=== PATIENT | male | born 1960 | race Caucasian/White ===

== ENCOUNTER 2017-06-07 15:18 | Observation (INO) ==
[2017-06-07] MEDS ORDERED: Nitroglycerin 0.4 MG TAB.SUBL SL ONE (15:32)
[2017-06-07] MEDS ORDERED: 0.9 % Sodium Chloride 500 ML IVC ONE (15:32)
--- NOTE | 2017-06-07 15:38 | Emergency Department Note ---
Disposition Clinical Impression: Chest tightness or pressure, Unstable angina Disposition: Admitted As Inpatient Condition: Fair Forms: ED Satisfaction Letter Time of Disposition: 16:57 Chest Pain HPI - General Chief Complaint: ED Chest Pain Stated Complaint: chest pain Time Seen by Provider: 06/07/17 15:20 Source: patient Limitations: no limitations Vital Signs Reviewed: Yes Nursing Notes Reviewed: Yes - History of Present Illness HPI Narrative: Patient is a 57-year-old male brought in by EMS secondary to chest pain that started early 45 minutes ago. Patient states she was sitting down while playing bingo when he had sudden onset of heavy chest pressure feeling midst of substernal 8 out 10 in severity. No radiation inconstant. 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 Patient's poor historian and does not know what medications he is on. Awaiting his mother for more information. Severity scale (1-10): 5 - Related Data Home Medications Medication Instructions Recorded Confirmed Albuterol Sulfate [Proair Hfa] 2 puff IH Q4H PRN 06/07/17 06/07/17 Amitriptyline [Elavil] 50 mg PO HS 06/07/17 06/07/17 Aspirin Enteric Coated [Aspirin EC] 81 mg PO DAILY 06/07/17 06/07/17 Lacosamide [Vimpat] 100 mg PO BID 06/07/17 06/07/17 Lisinopril/Hydrochlorothiazide 1 each PO DAILY 06/07/17 06/07/17 [Zestoretic 20-25 mg Tablet] carBAMazepine [CarBAMazepine] 100 mg PO BID 06/07/17 06/07/17 carBAMazepine [Tegretol] 200 mg PO TID 06/07/17 06/07/17 Allergies Allergy/AdvReac Type Severity Reaction Status Date / Time No Known Allergies Allergy Verified 10/08/15 08:43 Review of Systems: Patient admits to chest pain, denies nausea, vomiting, diarrhea, diaphoresis, cough, numbness tingling, paresthesia, dysuria, incontinence of urine or stool. All systems ED: reviewed and negative except as stated. Review of Systems: As Per HPI Chest Pain PMH - Past Medical History Medical history: Reports: hypertension, seizures Psychiatric history: Reports: no psych history - Social History Smoking Status: Never smoker Alcohol use: Reports: none Drug use: Reports: none Physical Exam Vital Signs Temperature 98.4 F 06/07/17 15:19 Pulse Rate 66 06/07/17 15:19 Respiratory Rate 18 06/07/17 15:19 Blood Pressure 119/94 06/07/17 15:19 O2 Sat by Pulse Oximetry 97 06/07/17 15:19 Temperature 98.1 F 06/07/17 22:24 Pulse Rate 66 06/07/17 22:24 Respiratory Rate 16 06/07/17 22:24 Blood Pressure 143/84 06/07/17 22:24 O2 Sat by Pulse Oximetry 96 06/07/17 22:24 Oxygen Delivery Oxygen Delivery Nasal Cannula -General Appearance: Patient is a 57-year-old male who is alert and oriented 3 in no acute distress. Patient seems uncomfortable secondary to chest pain. Patient follows direction well throughout exam -Neurological exam: Cranial nerves II-12 intact, no focal deficits observed, strength equal 5/5 bilaterally in upper and lower extremities, cerebellar motion test negative. Negative loss of sensation - Head Head exam: atraumatic, normocephalic, normal inspection - Eye Eye exam: Present: normal appearance, PERRL, EOMI, negative for scleral icterus negative for conjunctival pallor - ENT ENT exam: normal exam, normal oropharynx, mucous membranes moist - Neck Neck exam: Present: normal inspection, full ROM, trachea midline, negative JVD - Chest Chest inspection: Present: Patient has bilateral equal rise and fall of chest wall. Non-tender to palpation. - Respiratory Respiratory exam: Clear to auscultation bilaterally without wheezes rales or rhonchi Cardiovascular Cardiovascular exam: Present: regular rate, normal rhythm, normal heart sounds, without murmurs rubs or gallops. - Abdominal Exam Abdominal exam: Present: soft, nondistended, Non-Tender light and deep palpation in all quadrants. Bowel sounds normoactive throughout all 4 quadrants. Negative for hyper or hyperresonance. - Extremities Exam Extremities exam: Present: normal inspection, full ROM - Back Exam Back exam: Present: normal inspection, full ROM. Absent: tenderness, CVA tenderness (R), CVA tenderness (L) - Psychiatric Psychiatric exam: Present: normal affect, normal mood - Skin Skin exam: Present: warm, dry, intact, normal color - General Limitations: no limitations General appearance: alert, in no apparent distress Course - Reevaluation(s) Reevaluation #1: pain 6/10 Time: 16:30 Reevaluation #2: pain 2/10 after 2nd nitro. Plan is for patient to be admitted to hospital for chest pain workup. Patient family understands and agrees treatment and plan Time: 16:48 Reevaluation #3: Patient pain-free after third round of nitroglycerin. Time: 17:10 - Consultations Consultation #1: Dr. Ochoa the hospitalist has accepted for admission 1656 hrs Time: 16:57 Vital Signs Temperature 98.4 F 06/07/17 15:19 Pulse Rate 66 06/07/17 15:19 Respiratory Rate 18 06/07/17 15:19 Blood Pressure 119/94 06/07/17 15:19 O2 Sat by Pulse Oximetry 97 06/07/17 15:19 Temperature 98.4 F 06/07/17 15:19 Pulse Rate 61 06/07/17 16:15 Respiratory Rate 16 06/07/17 16:15 Blood Pressure 121/82 06/07/17 16:15 O2 Sat by Pulse Oximetry 96 06/07/17 16:15 Oxygen Delivery Oxygen Delivery Nasal Cannula Chest Pain - MDM Narrative Medical decision making narrative: Patient's concern for ACS/MO, PE, pneumothorax, aortic dissection, esophageal rupture, pneumonia, but given patient's history sounds more ACS related. Plan for chest pain workup to include troponin, chest x-ray, CBC, CMP, continue nitroglycerin treatment which is decreased patient's pain symptoms. The total 3. Aspirin has been given via EMS. As well as first dose nitroglycerin. Patient has a heart score for which places him at a 12-16% increase risk for major adverse cardiac event. Plan for patient to be admitted to hospital for chest pain workup and trending of troponins. Patient family has been brought to speed on inflammation. Currently no significant findings on EKG, no elevated troponin although it is highly too early to tell, patient will have troponins trend throughout his stay. The except my decision for admission for further workup. Patient has been accepted for admission. We will continue to monitor the patient until he he is transferred to inpatient care. - Lab Data Lab results reviewed: Yes I reviewed the patient's lab results. Lab results narrative: Short CBC 06/07/17 Range/Units 16:04 WBC 7.0 (4.3-11.1) K/mcL Hgb 11.2 L (12.9-16.9) g/dL Hct 34.2 L (37.5-50.1) % Plt Count 212 (140-400) K/mcL Neutrophils # 4.4 (1.6-8.9) K/mcL BMP 06/07/17 Range/Units 16:04 Sodium 140 (136-145) mEq/L Potassium 3.6 (3.5-4.5) mEq/L Chloride 106 (98-109) mEq/L Carbon Dioxide 27 (19-29) mEq/L BUN 16 (8-26) mg/dL Creatinine 0.81 (0.72-1.25) mg/dL Glucose 89 (70-99) mg/dL Calcium 8.6 (8.6-10.8) mg/dL Cardiac Enzymes 06/07/17 Range/Units 16:04 Troponin I 0.00 (0-0.03) ng/mL Result diagrams: 06/07/17 16:04 06/07/17 16:04 Lab Results 06/07/17 06/07/17 06/07/17 Range/Units 16:04 16:04 16:04 WBC 7.0 (4.3-11.1) K/mcL RBC 3.97 L (4.19-5.50) M/mcL Hgb 11.2 L (12.9-16.9) g/dL Hct 34.2 L (37.5-50.1) % MCV 86.1 (83.0-100.0) fL MCH 28.2 (28.0-33.3) pg MCHC 32.7 (31.6-35.5) g/dL RDW 13.6 (11.5-14.5) % Plt Count 212 (140-400) K/mcL MPV 9.4 (9.4-12.4) fL Immature Gran % 0.4 (0-4) % Seg Neutrophils % 63.3 % Lymphocytes % 23.7 % Monocytes % 9.3 % Eosinophils % 2.7 % Basophils % 0.6 % Neutrophils # 4.4 (1.6-8.9) K/mcL Lymphocytes # 1.7 (0.6-4.6) K/mcL Monocytes # 0.7 (0.0-1.3) K/mcL Eosinophils # 0.2 (0.0-0.6) K/mcL Basophils # 0.0 (0.0-0.2) K/mcL PT 11.5 (9.4-12.1) Seconds INR 1.1 Sodium 140 (136-145) mEq/L Potassium 3.6 (3.5-4.5) mEq/L Chloride 106 (98-109) mEq/L Carbon Dioxide 27 (19-29) mEq/L BUN 16 (8-26) mg/dL Creatinine 0.81 (0.72-1.25) mg/dL Est GFR ( Amer) > 60 (> 60) Est GFR (Non-Af Amer) > 60 (> 60) BUN/Creatinine Ratio 20 (6-26) Glucose 89 (70-99) mg/dL Calculated Osmolality 291 (280-300) Calcium 8.6 (8.6-10.8) mg/dL Troponin I (0-0.03) ng/mL 06/07/17 Range/Units 16:04 WBC (4.3-11.1) K/mcL RBC (4.19-5.50) M/mcL Hgb (12.9-16.9) g/dL Hct (37.5-50.1) % MCV (83.0-100.0) fL MCH (28.0-33.3) pg MCHC (31.6-35.5) g/dL RDW (11.5-14.5) % Plt Count (140-400) K/mcL MPV (9.4-12.4) fL Immature Gran % (0-4) % Seg Neutrophils % % Lymphocytes % % Monocytes % % Eosinophils % % Basophils % % Neutrophils # (1.6-8.9) K/mcL Lymphocytes # (0.6-4.6) K/mcL Monocytes # (0.0-1.3) K/mcL Eosinophils # (0.0-0.6) K/mcL Basophils # (0.0-0.2) K/mcL PT (9.4-12.1) Seconds INR Sodium (136-145) mEq/L Potassium (3.5-4.5) mEq/L Chloride (98-109) mEq/L Carbon Dioxide (19-29) mEq/L BUN (8-26) mg/dL Creatinine (0.72-1.25) mg/dL Est GFR ( Amer) (> 60) Est GFR (Non-Af Amer) (> 60) BUN/Creatinine Ratio (6-26) Glucose (70-99) mg/dL Calculated Osmolality (280-300) Calcium (8.6-10.8) mg/dL Troponin I 0.00 (0-0.03) ng/mL - Radiology Data Radiology results reviewed: Yes I reviewed the patient's radiology results. Chest X-Ray 06/07/17 15:34 IMPRESSION: No evidence of acute cardiopulmonary disease. D/ / Gus Shi MD / Gus Shi MD Interpreting Provider: Gus Shi MD - EKG Data EKG attestation: Yes I reviewed and interpreted this EKG. EKG results narrative: EKG taken 06/07/2017 at 1520 hrs. shows a ventricular rate of 63 bpm as sinus rhythm shows MT segment delay showing first-degree AV block and right bundle branch block. No acute ST elevations. Mild ST depressions in V2, V2 V3. Previous EKG taken 10/26/2014 shows similar morphology. Heart Score - Score History: Moderately Suspicious EKG: Non Specific repolarisation Disturbance Age: 45-65 Risk Factors: 1-2 risk factors Troponin: Less than normal limit HEART Score Total: 4
--- NOTE | 2017-06-07 15:53 | Emergency Department Note ---
START Narrative - START START: I examined this patient and my medical decision-making was reviewed with the ADVERTISING ACCOUNT MANAGER/PA/Advanced Practice Nurse/Resident Physician. I agree with the documented findings, disposition and treatment plan as described except to the extent set forth below. ED attending note: I saw this Patient with the emergency medicine resident Dr. DALY. Please see a copy of his note for details of the H&P, evaluation, management and disposition of this emergency Department patient. We independently had [id number] contact with the patient. Briefly: MRDD PT PTER VIA EMS FOR CP DURING CALLING #S AT LOC[facility]. STOPPED SMOKING 10+ YEARS AGO. We were stratified patient using the heart pathway and it indicated based upon his history and physical and vital signs that he was in the "high" respiratory and should be considered for admission. We discussed this with the patient and his mother who is at bedside. Patient will be getting a nitroglycerin trial since the initial nitroglycerin help with this chest pain. He really takes aspirin. Clinical impression at this time is exclude acute coronary syndrome and admission. Provided 30 minutes of critical care services for this patient.
[2017-06-07 16:14] LABS: Hematocrit 34.2 % (37.5-50.1); Hemoglobin 11.2 g/dL (12.9-16.9); Immature Granulocytes % 0.4 % (0-4); Lymphocytes % 23.7 %; Mean Corpuscular HGB Conc 32.7 g/dL (31.6-35.5); Mean Corpuscular Hemoglobin 28.2 pg (28.0-33.3); Mean Corpuscular Volume 86.1 fL (83.0-100.0); Mean Platelet Volume 9.4 fL (9.4-12.4); Platelet Count 212 K/mcL (140-400); Red Blood Count 3.97 M/mcL (4.19-5.50); Red Cell Distribution Width 13.6 % (11.5-14.5); Segmented Neutrophils % 63.3 %
[2017-06-07 16:15] LABS: Basophils % 0.6 %; Eosinophils # 0.2 K/mcL (0.0-0.6); Eosinophils % 2.7 %; Lymphocytes # 1.7 K/mcL (0.6-4.6); Monocytes # 0.7 K/mcL (0.0-1.3); Monocytes % 9.3 %; Neutrophils # 4.4 K/mcL (1.6-8.9)
[2017-06-07 16:23] LABS: INR 1.1; Prothrombin Time 11.5 Seconds (9.4-12.1)
[2017-06-07 16:28] LABS: BUN/Creatinine Ratio 20 (6-26); Blood Urea Nitrogen 16 mg/dL (8-26); Calcium 8.6 mg/dL (8.6-10.8); Carbon Dioxide 27 mEq/L (19-29); Chloride 106 mEq/L (98-109); Glucose 89 mg/dL (70-99); Osmolality,Calculated 291 (280-300); Potassium 3.6 mEq/L (3.5-4.5); Sodium 140 mEq/L (136-145); eGFR For African Americans > 60 (> 60); eGFR For Non-African Americans > 60 (> 60)
[2017-06-07] MEDS ORDERED: *HR* Morphine 2 MG/ML SYRINGE IVP PRN (17:16)
[2017-06-07] MEDS ORDERED: Acetaminophen 325 MG TABLET PO PRN (17:16)
[2017-06-07] MEDS ORDERED: Ondansetron 4 MG/2 ML VIAL IVP PRN (17:16)
[2017-06-07] MEDS ORDERED: Naloxone 0.4 MG/ML INJ IVP PRN (17:16)
[2017-06-07] MEDS: Aspirin Enteric Coated 81 MG Tablet PO SCH (17:47)
[2017-06-07] MEDS: *HR* Heparin 5,000 UNIT/ML VIAL SQ SCH (18:04)
[2017-06-07] MEDS: Famotidine 20 MG/2 ML VIAL IVP SCH (18:04)
--- NOTE | 2017-06-07 18:20 | Internal Med History&Physical ---
Date of Encounter: 06/07/17 Time of Encounter: 18:00 Assessment and Plan (1) Chest pain Current visit: Yes Status: Acute Atypical chest pain - rule out ACS - risk factors include family history and hypertension asymptomatic at present Continue aspirin, statin, IV Morphine as needed for pain, Nitroglycerin as needed Troponin - 0.00, cycle troponins EKG - sinus rhythm with first-degree AV block with no acute ST-T changes Chest x-ray - no acute process BN peptide - 17 Lipid panel, A1c, TSH - pending Echocardiogram - pending Nuclear stress test - pending Cardiac telemetry, EKG in a.m., labs in a.m. Qualifiers: Chest pain type: other chest pain Qualified Code(s): R07.89 - Other chest pain; R07.8 - Other chest pain (2) Essential hypertension Current visit: Yes Status: Chronic Essential hypertension, controlled Continue Lisinopril/HCTZ, monitor (3) Seizure disorder Current visit: Yes Status: Chronic Seizure disorder, stable - continue Vimpat and Carbamazepine home dose (4) CVA, old, hemiparesis Current visit: Yes Status: Chronic History of CVA with mild right-sided hemiparesis Continue aspirin and statin History of MRDD as per records (5) DVT prophylaxis Current visit: Yes Status: Acute Continue heparin subcutaneous Internal Medicine - H&P: HPI Chief complaint: Chest pain Admitted From: Emergency Dept Plans for Post Hospital Care: Home History of present illness: Mr. Mathew is a 57 year old male with past medical history of MRDD, hypertension, seizure disorder and history of CVA. Patient presents to the ED with complaints of chest pain. Examined on the MedSur floor. The patient is awake and alert. Not in any distress. Able to provide history. Family is at bedside and they provide history as well. 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 He was playing bingo this afternoon and he suddenly developed chest pain. He was sitting down when the symptoms started. He also had associated shortness of breath. He describes it as chest pressure and chest tightness. Symptoms lasted for almost one hour. Pain was constant and then gradually relieved on its own. No aggravating factors. Patient stated pain was 6 out of 10. Patient denied palpitations or cough or vomiting or fever or abdominal pain or diarrhea. Family states that patient has been fairly healthy otherwise. EMS was called and then he presented to the ED. At present patient denies having any chest pain or shortness of breath. Feels better now. Initial workup in the ED is negative. Chest x-ray does not show any acute process. Troponin is negative. EKG shows sinus rhythm with first- degree AV block and no acute ST-T changes. Patient was given 4 baby aspirins enroute to the ER. No other acute events or complaints. Patient is being admitted for chest pain to rule out ACS. Stress test and echocardiogram are pending. Patient and family have been explained about his condition and plan of care. They understood and agreed. No unanswered questions. CODE STATUS full code. Past Med Surg Social Fam HX - Past Medical History Medical history: hypertension, seizures Psychiatric history: no psych history - Past Surgical History Surgical History: orthopedic, other (Right foot surgery) - Social History Smoking Status: Never smoker Smokeless Tobacco Status: No Alcohol use: none Drug use: none - Family History Father Hx Family Cardiac Disorders: Yes (OK) Hx Family Cancer: Yes (Pancreatic cancer) Mother Hx Family Endocrine Disorder: Yes (Diabetes mellitus) Internal Medicine - H&P: Meds Albuterol Sulfate [Proair Hfa] 2 puff IH Q4H PRN 06/07/17 [History] Amitriptyline [Elavil] 50 mg PO HS 06/07/17 [History] Aspirin Enteric Coated [Aspirin EC] 81 mg PO DAILY 06/07/17 [History] Lacosamide [Vimpat] 100 mg PO BID 06/07/17 [History] Lisinopril/Hydrochlorothiazide [Zestoretic 20-25 mg Tablet] 1 each PO DAILY 01/19 [History] carBAMazepine [CarBAMazepine] 100 mg PO BID 06/07/17 [History] carBAMazepine [Tegretol] 200 mg PO TID 06/07/17 [History] Allergies No Known Allergies Allergy (Verified 10/08/15 08:43) All Systems PM: A 10-system review of systems was performed and is negative for pertinent findings except as documented above in the HPI. - Constitutional Constitutional: no fatigue, no fever(s), no weakness - EENT Eyes: no blurry vision - Cardiovascular Cardiovascular ROS IM: chest pain, dyspnea, no diaphoresis, no dyspnea on exertion, no lightheadedness, no orthopnea, no paroxysmal nocturnal dyspnea, no syncope - Respiratory Respiratory: dyspnea, no cough, no hemoptysis, no dyspnea on exertion, no wheezing, no chest congestion - Gastrointestinal Gastrointestinal: nausea, no abdominal pain, no belching, no bloating, no constipation, no cramping, no melena, no vomiting - Genitourinary Genitourinary ROS male: no dysuria - Musculoskeletal Musculoskeletal ROS IM: no arthralgias - Neurological Neurological ROS: no abnormal gait, no confusion, no dizziness, no numbness, no tingling - Constitutional Vitals: Temp Pulse Resp BP Pulse Ox 98.4 F 72 18 110/73 97 06/07/17 15:19 06/07/17 16:30 06/07/17 17:32 06/07/17 17:32 06/07/17 16:30 General appearance: Present: A&O X 3, pleasant, no acute distress, answers questions appropriately - Head Head exam: Present: atraumatic - Eye Eye exam: Present: EOMI - ENT ENT exam: Present: mucous membranes moist - Neck Neck exam general surgery: Present: supple - Respiratory Respiratory exam: Present: CTAB. Absent: rales, rhonchi, stridor, wheezes, tachypnea - Cardiovascular Cardiovascular exam: Present: RRR, +S1, +S2 - GI/Abdominal GI/Abdominal exam: Present: soft. Absent: distended, firm, guarding, rigid, tenderness - Extremities Exam Extremities exam: Present: radial pulses palpable and symetrical. Absent: cyanotic, pedal edema, tenderness - Neurological Exam Neurological exam: Present: alert, oriented X3. Absent: facial droop, speech deficit Internal Med - H&P Results - Labs CBC & Chem 7: 06/07/17 16:04 06/07/17 16:04
[2017-06-07] MEDS: EPITOL PO SCH (20:57)
[2017-06-07] MEDS: CarBAMazepine 100 MG TABLET PO SCH (20:57)
[2017-06-07] MEDS ORDERED: EPITOL PO SCH (21:00)
[2017-06-08 05:12] LABS: INR 1.1; Prothrombin Time 11.7 Seconds (9.4-12.1)
[2017-06-08 05:22] LABS: Hemoglobin A1C 5.5 %
[2017-06-08 05:34] LABS: BUN/Creatinine Ratio 18 (6-26); Blood Urea Nitrogen 15 mg/dL (8-26); Calcium 8.3 mg/dL (8.6-10.8); Carbon Dioxide 26 mEq/L (19-29); Chloride 107 mEq/L (98-109); Chol/HDL Ratio 4.2 (0-4.9); Cholesterol 143 mg/dL (< 200); Glucose 92 mg/dL (70-99); HDL Cholesterol 34 mg/dL (40-59); LDL Cholesterol,Calculated 69 mg/dL (0-99); Magnesium 1.5 mg/dL (1.6-2.6); Osmolality,Calculated 292 (280-300); Potassium 3.6 mEq/L (3.5-4.5); Sodium 141 mEq/L (136-145); Triglycerides 202 mg/dL (< 150); eGFR For African Americans > 60 (> 60); eGFR For Non-African Americans > 60 (> 60)
[2017-06-08 05:43] LABS: Thyroid Stimulating Hormone 1.788 mcIU/mL (0.350-4.840)
[2017-06-08] MEDS: Famotidine 20 MG/2 ML VIAL IVP SCH ×2 (06:06→17:50)
[2017-06-08] MEDS ORDERED: Regadenoson 0.4 MG/5 ML SYRINGE IVP ONE (06:06)
[2017-06-08] MEDS: *HR* Heparin 5,000 UNIT/ML VIAL SQ SCH ×2 (06:06→17:50)
[2017-06-08] MEDS ORDERED: Magnesium Sulfate 1 GM in D5% in Water 100 ML IVPB ONE (07:22)
[2017-06-08] MEDS: Aspirin Enteric Coated 81 MG Tablet PO SCH (10:05)
[2017-06-08] MEDS: CarBAMazepine 100 MG TABLET PO SCH ×2 (10:05→20:34)
[2017-06-08] MEDS: EPITOL PO SCH ×3 (10:05→20:33)
--- NOTE | 2017-06-08 11:39 | Electrocardiograph Report ---
[place] [id number] Test Date: 2017-06-07 Pat Name: Arnulfo Mathew Department: 103 Room: 3B45 Gender: M Tool And Die Technician: : 1960 Requested By: Naga [place]amo Order Number: [id number] Reading MD: Atul Schneider Measurements Intervals [place] Rate: 63 P: -7 IL: 219 QRS: -45 QRSD: 140 T: 15 QT: 438 QTc: 445 Interpretive Statements SINUS RHYTHM WITH FIRST DEGREE AV BLOCK RIGHT BUNDLE BRANCH BLOCK LEFT ANTERIOR FASCICULAR BLOCK Electronically Signed On 06-08-2017 11:38:09 EDT by Atul Schneider
--- NOTE | 2017-06-08 11:59 | Nuclear Medicine Stress Report ---
Regadenoson Nuclear Stress Name: Arnulfo Mathew Date of Study: 06/08/2017 Date: 1960 Ht: 66.0 in Medical Record#: [id number] Age: 57 Wt: 185.0 lb Gender: Male Order #: [id number] Location: [facility] Room: [facility] Supervising Provider: Zoë Dobson CNP Reading Physician: Grazyna Carmona DO Ordering Physician: Ara Mitchell CNP Primary Care Physician: Justina Cummings CNP Stress Technologist: Logan Hoover, KEL[employer] GATHERER, [facility] Assembler [employer]: Bhupendra Pollock Indications: Chest Pain, Chest Pain Impression: There is a small size, mild intensity perfusion defect during stress involving the apical inferior wall and apex. Findings suggest the presence of mild reversible ischemia. Pharmacologic stress ECG is negative for ischemia at level of heart rate achieved. Patient described 10/10 chest pain during stage I of pharmacologic infusion which resolved by recovery. Gated EF = 67%. Findings communicated to ordering provider. History: Hypertension Stress Test Summary: Stress Test Type: Pharmacologic Baseline Information: Initial Heart Rate: 59 Blood Pressure: 158/92 Stress Information: Test Terminated Due to (primary): As per protocol Maximum Blood Pressure: 128/76 Maximum Heart Rate: 92 Percent Maximum Heart Rate Achieved: 57 Double Product: [id number] METS Reached: 1 Symptoms: Chest pain, Chest pain Nuclear Summary: SPECT myocardial perfusion imaging using Tc99m Sestamibi given intravenously was performed at rest and following cardiac stress testing. The resting images were obtained following initial dose of 11.2 mCi. Following stress an additional dose of 32 mCi was given at peak exercise or 30 seconds post regadenoson infusion. Medication Given: Time Medication Dose Units Route Findings: Stress Note * Resting ECG demonstrated normal sinus rhythm with RBBB and nonspecific ST abnormalities. * Pharmacologic stress ECG is negative for ischemia at level of heart rate achieved. * No arrhythmias were noted during stress. * Patient described 10/10 chest pain during stage I of testing which resolved by recovery. Hemodynamic responses * Normal hemodynamic responses to pharmacologic stress. Study Quality * Study quality was fair. Gated EF % * Gated EF = 67%. Left Ventricle * The left ventricle is not dilated. TID * No evidence of transient ischemic dilatation. Lung Uptake * There is no evidence of increase lung uptake. NORMALS * Normal wall motion. PERFUSION * There is a small size, mild intensity perfusion defect during stress involving the apical inferior wall and apex. * Other segments demonstrate normal rest and stress perfusion. Updated by Grazyna Carmona on 06/08/2017 11:49:56 AM electronically signed on 06/08/2017 11:53:53 AM with status of Final
--- NOTE | 2017-06-08 13:28 | Cardiology Consult Note ---
Date of Encounter: 06/08/17 Time of Encounter: 13:05 Assessment and Plan (1) Abnormal nuclear stress test Current Visit: Yes Status: Acute Nuclear stress test revealed an EF of 67% and mild reversible ischemia of the apical inferior wall and apex. Talked to patient and her mother about undergoing a cardiac catheterization procedure as well as explained the risks involved and they both agreed. (2) Chest pain Current Visit: Yes Status: Acute Current EKG was compared to EKG from 10/26/2014 and revealed no significant acute changes. No ST elevations noted. Troponin level on arrival was negative. No evidence for NSTEMI. Recommend continuing aspirin, statin, IV morphine, and nitroglycerin as needed. Qualifiers: Chest pain type: other chest pain Qualified Code(s): R07.89 - Other chest pain; R07.8 - Other chest pain (3) History of CVA (cerebrovascular accident) Current Visit: Yes Status: Acute CHADS2 score of 3 . Continue aspirin and statin. (4) Essential hypertension Current Visit: Yes Status: Chronic BP is 128/84. Continue lisinopril/HCTZ. (5) Hypomagnesemia Current Visit: Yes Status: Acute Current magnesium level is 1.5 mg/dL. Ordered Magnesium sulfate 2gm IV. Discussion w patient/family: The assessment and plan as outlined above was discussed with the patient and/or family members who expressed understanding and agreement. All questions were answered. Thank you for involving us in the care of your patient. Please call with any questions. History of Present Illness Consult date: 06/08/17 Requesting physician: Cuong Troy Consult reason: Positive Stress Test Chief complaint: Chest pain History of present illness: Mr. Mathew is a 57 year old male with a PMH of CVA and HTN that presented to the ED on 06/07/2017 for chest pain. Patient says that he was sitting down, playing bingo when he began to experience intense pressure on his chest. He rates the pain as an 8/10. He admits to shortness of breath, but he denies any radiation of the pain to his upper arm or jaw. He was given nitroglycerin tablets and describes the pain reducing to a 2/10. He says this has never happened before and denies any history of exertional dyspnea and chest pain. Troponin level on arrival was negative. He has a CHADS2 score of 3 (HTN, stroke) . He underwent a nuclear stress test today and revealed mild reversible ischemia of the apical inferior wall and apex and an EF of 67%. He has a history of epilepsy and CVA/stroke (2006). Patient has been noted to be MRDD and a poor historian but when spoken to today, he seemed to recall the events that led him to the hospital very well and was alert and oriented. His mother was present at bedside and admits she is usually involved his his medical decisions, but the patient himself is legally the decision maker. Past Med Surg Social Fam HX - Past Medical History Medical history: CVA, hypertension, seizures Psychiatric history: no psych history - Past Surgical History Surgical History: orthopedic, other (Right foot surgery) - Social History Smoking Status: Never smoker Smokeless Tobacco Status: No Alcohol use: none Drug use: none - Family History Mother Age: 81 Living Status: Still Living Hx Family Cardiac Disorders: Yes (HTN) Hx Family Endocrine Disorder: Yes (Borderline DM) Hx Family Musculoskeletal Disorders: Yes (Arthritis) Hx Family Neuromuscular Disorders: Yes (Siatica) Hx Family Neurologic Disorders: Yes (Mini Stroke) Father Living Status: Age at : 42 Cause of : Cancer Hx Family Cardiac Disorders: Yes (NE) Hx Family Cancer: Yes (Pancreatic) Medications and Allergies Albuterol Sulfate [Proair Hfa] 2 puff IH Q4H PRN 06/07/17 [History] Amitriptyline [Elavil] 50 mg PO HS 06/07/17 [History] Aspirin Enteric Coated [Aspirin EC] 81 mg PO DAILY 06/07/17 [History] Lacosamide [Vimpat] 100 mg PO BID 06/07/17 [History] Lisinopril/Hydrochlorothiazide [Zestoretic 20-25 mg Tablet] 1 each PO DAILY 01/19 [History] carBAMazepine [CarBAMazepine] 100 mg PO BID 06/07/17 [History] carBAMazepine [Tegretol] 200 mg PO TID 06/07/17 [History] Allergies No Known Allergies Allergy (Verified 10/08/15 08:43) All Systems Review: A 10-system review of systems was performed and is negative for pertinent findings except as documented above in the HPI. - Constitutional Constitutional: no headache(s) - Cardiovascular Cardiovascular: no chest pain at rest, no chest pain with exertion, no dyspnea at rest, no dyspnea on exertion, no irregular heart rhythm, no radiating jaw, neck or arm pain, no leg edema, no lightheadedness, no orthopnea, no palpitations, no rapid heart rate, no syncope - Respiratory Respiratory: no cough, no dyspnea - Gastrointestinal Gastrointestinal: no abdominal pain, no constipation, no diarrhea, no hematochezia, no melena - Genitourinary Genitourinary: no hematuria - Neurological Neurological: no numbness, no syncope, no tingling Physical Examination Vital Signs, Last 4 Hours Temp Pulse Resp BP Pulse Ox 06/08/17 11:01 97.6 F 69 16 128/84 96 06/08/17 10:04 98.2 F 66 16 149/85 97 06/08/17 09:40 97 General: Conversant, No Apparent Distress, Other (Alert and oriented x 3) Neck: No JVD, Normal carotid pulses Cardiac: Reg Rate and Rhythm, Normal S1 and S2, No Murmur Lungs: Normal Breath Sounds, No Wheeze, Rales, Rhonchi Neuro: Alert and responsive, No focal deficits noted, Other (Cranial nerves II- XII intact) Abdomen: Soft, Non-Tender Musculoskeletal: No Chest Wall Tenderness Extremities: No Clubbing, No Cyanosis, No Edema, Other (5/5 muscular strength in upper and lower extremeties) Results 06/07/17 16:04 06/08/17 04:36 Lab Results 06/07/17 06/08/17 06/08/17 21:36 04:36 04:36 INR 1.1 Sodium Potassium Chloride Carbon Dioxide BUN Creatinine Glucose Calcium Magnesium Troponin I 0.00 0.00 TSH 06/08/17 04:36 INR Sodium 141 Potassium 3.6 Chloride 107 Carbon Dioxide 26 BUN 15 Creatinine 0.85 Glucose 92 Calcium 8.3 L Magnesium 1.5 L Troponin I TSH 1.788 - Imaging and Cardiology Chest Xray: report reviewed (No evidence of acute cardiopulmonary disease.) Stress Test: report reviewed (EF of 67% and mild reversible ischemia of the apical inferior wall and apex.) - EKG Interpretation EKG results cardiology: personally reviewed (Compared current EKG to one from and see no acute changes. No ST elevations noted.) Consult Discharge Plan - Plan Referrals: Justina Cummings, [facility] [Primary Care Provider] - Charla Matthews CNP [Advanced Practice Nurse] - 06/15/17 10:00 am
--- NOTE | 2017-06-08 15:41 | Internal Med Progress Note ---
Date of Encounter: 06/08/17 Time of Encounter: 11:00 - Assessment and plan (1) Chest pain Current Visit: Yes Status: Acute Assessment and plan: Atypical chest pain - rule out ACS - risk factors include family history and hypertension asymptomatic at present Continue aspirin, statin, IV Morphine as needed for pain, Nitroglycerin as needed Troponin - 0.00, cycle troponins EKG - sinus rhythm with first-degree AV block with no acute ST-T changes Chest x-ray - no acute process BN peptide - 17 Cardiology consult - likely needs [facility] Echocardiogram - LVEF 60% with mild LV diastolic dysfunction normal RV structure and function, no wall motion abnormality Nuclear stress test - mild reversible ischemia, gated EF 67% Cardiac telemetry, EKG in a.m., labs in a.m. Qualifiers: Qualified Code(s): R07.89 - Other chest pain; R07.8 - Other chest pain (2) Essential hypertension Current Visit: Yes Status: Chronic Assessment and plan: Essential hypertension, controlled Continue Lisinopril/HCTZ, monitor (3) Seizure disorder Current Visit: Yes Status: Chronic Assessment and plan: Seizure disorder, stable - continue Vimpat and Carbamazepine home dose (4) CVA, old, hemiparesis Current Visit: Yes Status: Chronic Assessment and plan: History of CVA with mild right-sided hemiparesis Continue aspirin and statin History of MRDD as per records (5) DVT prophylaxis Current Visit: Yes Status: Acute Assessment and plan: Continue heparin subcutaneous - Time Spent With Patient 25 - 35 minutes - Subjective Interval history: Examined this morning. Patient is awake and alert. Not in any distress. Denies chest pain or shortness of breath. States he feels better. Stress test done this morning and it revealed mild reversible ischemia. Cardiology consult. Patient will probably need a left heart catheterization. No other acute events or complications. - Constitutional Vitals: Temp Pulse Resp BP Pulse Ox 97.6 F 69 16 128/84 96 06/08/17 11:01 06/08/17 11:01 06/08/17 11:01 06/08/17 11:06/08/17 11:01 General appearance: Present: A&O X 3, pleasant, no acute distress, answers questions appropriately - Head Head exam: Present: atraumatic - Eye Eye exam: Present: EOMI - ENT ENT exam: Present: mucous membranes moist - Neck Neck exam general surgery: Present: supple - Respiratory Respiratory exam: Present: CTAB. Absent: rales, rhonchi, stridor, wheezes, tachypnea - Cardiovascular Cardiovascular exam: Present: RRR, +S1, +S2 - GI/Abdominal GI/Abdominal exam: Present: soft. Absent: distended, firm, guarding, rigid, tenderness - Extremities Exam Extremities exam: Present: radial pulses palpable and symetrical. Absent: cyanotic, pedal edema, tenderness - Neurological Exam Neurological exam: Present: alert, oriented X3, no focal deficits Internal Medicine: Result - Labs CBC & Chem 7: 06/07/17 16:04 06/08/17 04:36 Labs: BMP 06/08/17 04:36 Sodium 141 Potassium 3.6 Chloride 107 Carbon Dioxide 26 BUN 15 Creatinine 0.85 Glucose 92 Calcium 8.3 L Cardiac Enzymes 06/07/17 06/08/17 Range/Units 21:36 04:36 Troponin I 0.00 0.00 (0-0.03) ng/mL - ABG Interpretation ABG results: PT/INR, D-dimer PT 11.7 Seconds (9.4-12.1) 06/08/17 04:36 - Impressions Impressions Echocardiogram 06/07/17 17:31 Impressions: LVEF 60%. Mild left ventricular diastolic dysfunction. Normal right ventricular structure and function. Mild mitral regurgitation. No pulmonary hypertension. Left Ventricular Wall Motion: Rest Echo Findings All wall segments showed normal motion. Findings: Study Quality * Technically adequate exam. ECG Findings * Normal sinus rhythm. Left Ventricle * LVEF 60%. * Asymmetric basal septal hypertrophy. * Mild left ventricular diastolic dysfunction. Right Ventricle * Normal right ventricular structure and function. Left Atrium * Normal left atrial size. Right Atrium * Normal right atrial size. Aortic Valve * No aortic regurgitation. * Trileaflet aortic valve. * Normal aortic valve structure. * No aortic stenosis. Mitral Valve * Normal mitral valve structure. * No mitral stenosis. * Mild mitral regurgitation. Tricuspid Valve * Normal tricuspid valve structure. * Trace tricuspid regurgitation. * Estimated RA pressure is 3 mmHg. * Estimated RVSP is 21 mmHg. * No pulmonary hypertension. Pulmonic Valve * Pulmonic valve is not well visualized. * No pulmonic stenosis. * No pulmonic regurgitation. Pulmonary Artery * Pulmonary artery not well visualized. Aorta * Normally sized aortic root. Pericardium * There is no pericardial effusion present. Interatrial Septum * No evidence of PFO by color Doppler. IVC * The IVC is not dilated. Consult Discharge Plan - Plan Referrals: Justina Cummings CNP [Primary Care Provider] - Charla Matthews CNP [Advanced Practice Nurse] - 06/15/17 10:00 am
[2017-06-08] MEDS ORDERED: Magnesium Sulfate 2 GM in D5% in Water 100 ML IVPB ONE (15:44)
[2017-06-08] MEDS ORDERED: Heparin 1,000 UNITS/500 mL NS 500 ML ONE (16:25)
[2017-06-08] MEDS ORDERED: 0.9 % Sodium Chloride 1,000 ML ONE (16:25)
[2017-06-08] MEDS ORDERED: *HR* Heparin 10,000 UNIT/10 ML VIAL ONE (16:25)
[2017-06-08] MEDS ORDERED: Nitroglycerin 1,000 MCG/10 ML VIAL IV ONE (16:25)
[2017-06-08] MEDS ORDERED: *HR* Midazolam HCl 2 MG/2 ML VIAL ONE (16:27)
[2017-06-08] MEDS ORDERED: *HR* FentaNYL (PF) 100 MCG/2 ML VIAL ONE (16:28)
--- NOTE | 2017-06-08 16:52 | Pre-Sedation Evaluation ---
Pre-sedation evaluation - Pre-sedation checklist Date of procedure: 06/08/17 Procedure: left heart cath Recent Vitals: Last Vital Signs Temp 97.6 F 06/08/17 11:01 Pulse 69 06/08/17 11:01 Resp 16 06/08/17 11:01 BP 128/84 06/08/17 11:01 Pulse Ox 96 06/08/17 11:01 H&P (including ROS) documented in medical record: Yes Previous reaction to sedatives/anesthetics: No Dietary Status: No solid food in preceding 4 hrs and no liquid in preceding 2 hrs Airway Assessment: Patient can open mouth completely, TMJ function normal, Micrognathia (under-bite, receding chin) absent, Neck with adequate range of motion Dentition: full dentition Possible difficult airway: No ASA Classification *see protocol: CLASS II-Mild systemic disease Plan of Care: Pt appropriate candidate for procedure/moderate/conscious sedation , Risks/benefits of procedure/sedation discussed w/ patient/family
--- NOTE | 2017-06-08 17:28 | Invasive Diagnostic Lab Proc ---
Name: Arnulfo Mathew Date of Study: 06/08/2017 Date: 1960 Ht: 66.1in Medical Record#: [id number] Age: 57 Wt: 185.19lb Gender: Male BSA: 1.94 Order #: [id number] BMI: 29.76 Physicians Procedure Physician: Rachana Schneider MD, [facility] Referring MD: Referring MD: Staff Name Position Time In Bobbi Lawson RN External Relations Manager 04:50 PM Sophy Montenegro RT (R) Scrub 04:50 PM Razia Grover RT (R) Scrub 04:50 PM Magdi Etienne RT (R) Monitor 05:14 PM Indications Indication Non-Stemi Abnormal Test - Stress Procedures Performed Procedure L HRT ARTERY/VENTRICLE ANGIO Pre-Procedure Checklist Informed consent is complete signed and on chart. H&P is on chart. ID band is on and ID verified with patient. Patient NPO for procedure The procedure was described for the patient and questions were answered. ECG is on chart. Rhythm: NSR Plan of Care Patient will tolerate the procedure without complications. Adequate level of comfort will be maintained. Hemodynamics will remain stable Patient will recover from procedure without complications. Respiratory function will be maintained. Cardiac rhythm will remain stable. Patient temperature will be maintained. Patient and/or family have verbalized understanding of the procedure. Patient Education Chief Complaint/Reason for Test: Cardiac Cath Developmental Category: Adult (18-64 years) Developmentally Appropriate for Age: Yes Learning Barriers: None Education Needs: Procedure Education Method: Verbal Information Taught: Cardiac Cath Educational Evaluation: Able to repeat information Intravenous Access Time IV Size Location DC'd Fluid/Drip Rate Units RN 04:31 PM Started with 20g 1 1/4" Rt Wrist 0.9NaCl 25 ml/hr Lior Gregorio RN Allergies NO KNOWN DRUG ALLERGIES Vital Signs Time BP (mmHg) HR (bpm) O2 Sat. RR (bpm) LOC 04:51 PM / % 4 = Oriented but drowsy 04:50 PM 107 / 91 73 96 % 14 04:56 PM 146 / 94 71 97 % 25 05:00 PM 138 / 85 67 97 % 20 05:05 PM 137 / 86 75 97 % 15 05:10 PM 143 / 94 72 96 % 24 Procedural Medications Time Medication Dose Units Method Given By 04:52 PM Versed 2 mg Intravenous Bobbi Lawson RN 04:52 PM Fentanyl 50 mcg Intravenous Bobbi Lawson RN 05:01 PM Lidocaine 2% 111 ml Subcutaneous Rachana Schneider MD, [facility] Sujit Score Preprocedure Postprocedure Activity 2- Moves 4 extremities sustained head lift Activity 2- Moves 4 extremities sustained head lift Circulation 2- SBP +/= 20 points of pre-anesthetic level Circulation 2- SBP +/= 20 points of pre-anesthetic level Consciousness 2- Awake and alert oriented x 3 Consciousness 2- Awake and alert oriented x 3 O2 Saturation 2- Able to maintain O2 satruation of 92% on room air O2 Saturation 2- Able to maintain O2 satruation of 92% on room air Respiratory 2- Able to deep breathe and cough well Respiratory 2- Able to deep breathe and cough well Total Score 10 Total Score 10 Contrast Agent: Isovue Diagnostic Contrast: 57 ml Total Contrast: 57 ml Fluoro Dose: 151 mGy Procedure Log Time Note Enter By 04:31 PM CathStat 04:47 PM Pt arrived to dental laboratory supervisor 2 at 16:47 scoates 04:47 PM Physician arrived 16:47 scoates 04:47 PM Meet and greet completed scoates 04:47 PM Sign in performed according to hospital policy. scoates 04:47 PM Procedure start 16:47 scoates 04:50 PM Vitals capture started with the following parameters, Patient=Adult, Interval=5 min, Initial Dewnjrql=463 mmHg, Deflation Rate=5 mmHg, Cuff placed on Right Arm 04:50 PM Bobbi Lawson RN Position: External Relations Manager Time in: 16:50 scoates 04:50 PM Sophy Montenegro RT (R) Position: Scrub Time in: 16:50 scoates 04:50 PM Razia Grover RT (R) Position: Scrub Time in: 16:50 scoates 04:50 PM HR=73 bpm, CZEX=055/91 mmhg, SpO2=96.0 %, Resp=14 B/min, Comment=NSR 04:50 PM Patient charges- Angio tray pack, Navilyst 3mm J, Pulse Oximetry and ACIST tubing and transducer scoates 04:50 PM IV Supplies used: J loop Angio Cath. scoates 04:50 PM Case Delayed No scoates 04:50 PM Hair removed from procedure site in holding area using clippers. Bilateral groin prepped with Chloraprep by Bobbi Lawson RN, safety strap applied then patient was draped. Skin intact. scoates 04:51 PM Time: 16:51 Patient comfortable and pain free: Yes scoates 04:51 PM Time: 16:51LOC: 4 = Oriented but drowsy scoates 04:51 PM Recorded ECG: HR=66 Condition=Condition 1 04:52 PM Time: 16:52 Versed 2 mg Intravenous Given by Bobbi Lawson RN scoates 04:52 PM Time: 16:52 Fentanyl 50 mcg Intravenous Given by Bobbi Lawson RN scoates 04:56 PM HR=71 bpm, DVPI=642/94 mmhg, SpO2=97.0 %, Resp=25 B/min 04:56 PM Pressure channel 1 zero failed. 04:56 PM Pressure channel 1 zeroed. 05:00 PM HR=67 bpm, ZHZN=876/85 mmhg, SpO2=97.0 %, Resp=20 B/min, Comment=NSR 05:01 PM Time out performed according to hospital policy [email or web address] 05:02 PM Time: 17:01 111 ml Lidocaine 2% to right groin Subcutaneous [email or web address] 05[facility] PM Access obtained by percutaneous puncture. 5Fr 10cm Terumo [place] sheath placed in right Femoral artery. [id number] [email or web address] 05:02 PM 0.035 145cm Navilyst 3mmJ wire [id number] [email or web address] 05:02 PM 5Fr FL 4 catheter inserted over the wire [facility] [email or web address] 05:03 PM LCA angiography performed in multiple views. [email or web address] 05:03 PM Recorded Pressure: Ao, HR=67, Condition=Condition 1 (Aorta) Ao 133/92/111 05:04 PM [email or web address] 05:04 PM 5Fr FR 4 catheter inserted over the wire [facility] [email or web address] 05:05 PM HR=75 bpm, CSPQ=348/86 mmhg, SpO2=97.0 %, Resp=15 B/min, Comment=NSR 05:06 PM RCA angiography performed in multiple views. [email or web address] 05:06 PM Recorded Pressure: Ao, HR=75, Condition=Condition 1 (Aorta) Ao 137/103/120 05:06 PM Coronary Dominance: right [email or web address] 05:07 PM Catheter removed [email or web address] 05:07 PM 5Fr Pigtail catheter inserted over the wire C [email or web address] 05:07 PM Catheter selectively placed in left ventricle [email or web address] 05:08 PM Pressure channel 1 zeroed. 05:08 PM Recorded Pressure: LV, HR=82, Condition=Condition 1 (Left Ventricle) LV 115/24/27 05:08 PM Bolus angiogram of left Ventricle complete: 8 ml/sec for a total of 24 mls [email or web address] 05:09 PM Recorded Pressure: LV, Ao, HR=77, Condition=Condition 1 (Left Ventricle) LV 171/54/140, (Aorta) Ao 131/45/83 05:09 PM Catheter removed [email or web address] 05:09 PM Bolus angiogram of right Femoral complete: 4 ml/sec for a total of 7 mls [email or web address] 05:10 PM HR=72 bpm, BSCU=106/94 mmhg, SpO2=96.0 %, Resp=24 B/min, Comment=NSR 05:11 PM Procedure completed at 17:11 [email or web address] 05:11 PM Sign out completed: Radiation Dose 150.96 mGy Fluoro Time: 1.6 Isovue 370 - 200ml contrast 57 ml given by Rachana Schneider MD, [facility]. Complications: NoneCardiac Rehab Consult needed: NoConfirmed administered medications: Yes [email or web address] 05:13 PM Isovue 370 - 200ml,1 Bottle(s) used. [email or web address] 05:13 PM Arterial sheath pulled, Mynx closure device used and was Successful S/N. [email or web address] 05:13 PM Post ECG NSR [email or web address] 05:13 PM Post Blood Pressure 143/94 [email or web address] 05:13 PM 17:13 Post Pulses Bilateral DP 1+ [email or web address] 05:13 PM 17:13 Post Pulses Bilateral PT 2+ [email or web address] 05:13 PM Information taught Cardiac Cath and Mynx [email or web address] 05:13 PM Education needs Procedure, Plan of Care, and Disease Process [email or web address] 05:13 PM Learning barriers :None [email or web address] 05:13 PM Education Methods Verbal [email or web address] 05:13 PM Education evaluation Able to repeat information [email or web address] 05:15 PM Lowell, Magdi RT (R) Position: Monitor Time in: 17:14 [email or web address] 05:15 PM Site status No bleeding/hematoma - Rt Groin as reported by Sophy Montenegro RT (R) at 17:15 [email or web address] 05:16 PM Lesion found in LMCA. Pre Stenosis: 15 Pre PATTI Flow: 3: Complete and Brisk Flow/Perfusion [email or web address] 05:17 PM Lesion found in Proximal LAD. Pre Stenosis: 20 Pre PATTI Flow: 3: Complete and Brisk Flow/Perfusion [email or web address] 05:17 PM Lesion found in Proximal Circumflex. Pre Stenosis: 20 Pre PATTI Flow: 3: Complete and Brisk Flow/Perfusion [email or web address] 05:17 PM Lesion found in Proximal RCA. Pre Stenosis: 20 Pre PATTI Flow: 3: Complete and Brisk Flow/Perfusion [email or web address] 05:18 PM Lesion found in Mid RCA. Pre Stenosis: 40 Pre PATTI Flow: 3: Complete and Brisk Flow/Perfusion [email or web address] 05:18 PM Lesion found in Distal RCA. Pre Stenosis: 30 Pre PATTI Flow: 3: Complete and Brisk Flow/Perfusion [email or web address] 05:20 PM Opsite applied [email or web address] 05:20 PM Report given to RN Pt taken to 3B Room #45. 17:20 [email or web address] 05:20 PM Delay to floor No [email or web address] 05:20 PM Family placed in consult room. [email or web address] 05:20 PM Complications: None [email or web address] 05:22 PM Fluoro Time: 1.6 [email or web address] 05:22 PM Complications: None [email or web address] 05:22 PM Patient out of room: 17:22 [email or web address] Complications Complication None None None Hemodynamics Pressures Site Systolic/A Wave Diastolic/V Wave Mean AO 133 92 111 AO 137 103 120 LV 115 24 27 LV 171 54 140 AO 131 45 83 Post Procedure Information Blood Pressure: 143/94 mmHg Rhythm: NSR Post procedural instructions were not given Site Checks Time Location Status Staff Sheath In? Note 05:15 PM Rt Groin No bleeding/hematoma Sophy Montenegro RT (R) Pulses Time Site Pre-Procedure Post-Procedure Note 06/08/2017 4:37:00 PM Bilateral DP 1+ 06/08/2017 4:39:00 PM Bilateral PT 2+ 06/08/2017 4:39:00 PM Bilateral radial 1+ 5:13:00 PM Bilateral DP 1+ 5:13:00 PM Bilateral PT 2+ Updated by RT Farzad(R) on 06/08/2017 5:22:45 PM electronically signed on 06/08/2017 5:23:23 PM with status of Final
--- NOTE | 2017-06-08 17:43 | Invasive Diagnostic Lab ---
Name: Arnulfo Mathew Date of Study: 06/08/2017 Date: 1960 Ht: 168.0 cm /66.1 in Medical Record#: [id number] Age: 57 Wt: 84. kg / 185.19 lb Account/Order#: [id number] Gender: Male BSA: 1.94 Order #: [id number] Fluoro Dose: 151 mGy BMI: 29.76 Procedure Physician: Rachana Schneider MD, [facility] Referring MD: Referring MD: Procedures Performed: LEFT HEART CATH Indications: Non-Stemi, Abnormal Test - Stress Impressions: Nonobstructive coronary artery disease. The left ventricle is normal and has normal contractility EF 65% Recommendations: Optimal medical therapy of patient's disease. Aggressive risk factor modification. History/Risk Factors: seizures MRDD CP Hypertension Cerebrovascular disease Procedure Access obtained in the right Femoral artery by percutaneous puncture Complications: None Contrast: Isovue 57ml Hemodynamics: Pressures Site Systolic/ A Wave Diastolic/ V Wave End Diastolic/ Mean HR AO 133 92 111 67 AO 137 103 120 75 LV 115 24 27 82 LV 171 54 140 75 AO 131 45 83 77 LV Ventriculography Ejection Method: LV Gram Ejection Fraction: 65% Wall Motion: ALBERTO Anterobasal Normal Anterolateral Normal Apical: Normal Inferoapical Normal Inferobasal Normal Coronary Dominance: right Lesion Findings/Interventions * Left Main Coronary Artery There is a 15% stenosis in the LMCA. The lesion has a PATTI flow of 3. * Left Anterior Descending There is a 20% stenosis in the Proximal LAD. The lesion has a PATTI flow of 3. * Circumflex There is a 20% stenosis in the Proximal Circumflex. The lesion has a PATTI flow of 3. * Right Coronary Artery There is a 20% stenosis in the Proximal RCA. The lesion has a PATTI flow of 3. There is a 40% stenosis in the Mid RCA. The lesion has a PATTI flow of 3. There is a 30% stenosis in the Distal RCA. The lesion has a PATTI flow of 3. Updated by RT Farzad(R) on 06/08/2017 5:19:46 PM Rachana Schneider MD, FACC electronically signed on 06/08/2017 5:38:08 PM with status of Final
[2017-06-09] MEDS: Famotidine 20 MG/2 ML VIAL IVP SCH (04:59)
[2017-06-09] MEDS: *HR* Heparin 5,000 UNIT/ML VIAL SQ SCH (05:01)
[2017-06-09 06:53] LABS: BUN/Creatinine Ratio 15 (6-26); Blood Urea Nitrogen 13 mg/dL (8-26); Calcium 8.6 mg/dL (8.6-10.8); Carbon Dioxide 28 mEq/L (19-29); Chloride 106 mEq/L (98-109); Glucose 96 mg/dL (70-99); Magnesium 1.8 mg/dL (1.6-2.6); Osmolality,Calculated 290 (280-300); Potassium 3.6 mEq/L (3.5-4.5); Sodium 140 mEq/L (136-145); eGFR For African Americans > 60 (> 60); eGFR For Non-African Americans > 60 (> 60)
[2017-06-09 07:02] VITALS: BP 112/76
--- NOTE | 2017-06-09 07:47 | Event Note ---
Date of Encounter: 06/09/17 Time of Encounter: 07:46 - Cardiology Event Note LHC yesterday showed nonobstructive CAD. No intervention warranted. ASA, Statin , BB. Cardiology signing off. Reconsult PRN.
[2017-06-09] MEDS: CarBAMazepine 100 MG TABLET PO SCH (09:20)
[2017-06-09] MEDS: Aspirin Enteric Coated 81 MG Tablet PO SCH (09:20)
--- NOTE | 2017-06-09 10:51 | Discharge Summary ---
Date of Encounter: 06/09/17 Time of Encounter: 08:00 - Discharge Diagnosis (1) Chest pain Priority: Primary Status: Resolved Comments: Atypical chest pain - now resolved - ACS ruled out LHC - non-obstructive CAD, cardiology recommends medical management Echo - LVEF 60 % with mild LV diastolic dysfunction normal RV structure and function, no wall motion abnormality Nuclear stress test - mild reversible ischemia, gated EF 67% Troponin - negative x3 continue ASA, Statin, BB Qualifiers: Chest pain type: other chest pain Qualified Code(s): R07.89 - Other chest pain; R07.8 - Other chest pain (2) Essential hypertension Priority: Secondary Status: Chronic Comments: controlled, continue home meds (3) Seizure disorder Priority: Secondary Status: Chronic Comments: stable, continue home meds (4) CVA, old, hemiparesis Priority: Secondary Status: Chronic Comments: History of CVA with mild right-sided hemiparesis Continue aspirin and statin History of MRDD as per records - Discharge Medications Prescriptions: Aspirin Enteric Coated [Aspirin EC] 81 mg PO DAILY #30 Atorvastatin [Lipitor] 40 mg PO HS 30 Days Metoprolol [Lopressor] 12.5 mg PO BID 30 Days Home Medications: Albuterol Sulfate [Proair Hfa] 2 puff IH Q4H PRN 06/07/17 [History] Amitriptyline [Elavil] 50 mg PO HS 06/07/17 [History] Lacosamide [Vimpat] 100 mg PO BID 06/07/17 [History] Lisinopril/Hydrochlorothiazide [Zestoretic 20-25 mg Tablet] 1 each PO DAILY 01/19 [History] carBAMazepine [CarBAMazepine] 100 mg PO BID 06/07/17 [History] carBAMazepine [Tegretol] 200 mg PO TID 06/07/17 [History] Aspirin Enteric Coated [Aspirin EC] 81 mg PO DAILY #30 06/09/17 [Rx] Atorvastatin [Lipitor] 40 mg PO HS 30 Days 06/09/17 [Rx] Metoprolol [Lopressor] 12.5 mg PO BID 30 Days 06/09/17 [Rx] Allergies/Adverse Reactions: Allergies No Known Allergies Allergy (Verified 10/08/15 08:43) Date of admission: 06/08/17 18:00 Primary care physician: Justina L Cummings, C Anticipated date of discharge: 06/09/17 - Patient Status Disposition: Home, Self-Care Condition: Good Functional capacity at discharge: independent ambulation Overall status at discharge: patient is back to baseline - Discharge Instructions Instructions: Chest Pain (DC) Follow Up With: Charla Matthews CNP [Advanced Practice Nurse] - 06/15/17 10:00 am - Diet and Activity Activity: resume usual activities as tolerated Diet: advance to your usual diet Hospital course: Mr. Mathew is a 57 year old male with past medical history of MRDD, hypertension, seizure disorder and history of CVA. He presented to the ED with complaints of chest pain. 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 He also had mild associated shortness of breath. He described the pain as chest pressure and tightness. Symptoms lasted for almost one hour. Chest pain had gradually relieved on its own. Initial troponin is negative. EKG shows sinus rhythm with first-degree AV block and no acute ST-T changes. Patient was given 4 baby aspirins. He was admitted for chest pain to rule out ACS. Patient echocardiogram shows LVEF 60% with mild LV diastolic dysfunction and normal artery strokes and function. And no wall motion abnormality. Nuclear stress test showed mild reversible ischemia due to the EF 67%. Cardiology was then consulted. Patient was then taken for left heart catheterization. He was found to have nonobstructive coronary artery disease. Radiology has recommended to continue aspirin and statin and beta genevieve. No further workup at this time. Vision tolerated his procedure well. He is tolerating oral diet well and ambulates well at this time. He had no other acute events or complications during his stay in the hospital. Patient and his mother have been explained about his condition and plan of care in detail. They understood and agreed. No unanswered questions. Patient is being discharged with beta genevieve and aspirin and statin. He has been advised to follow-up with his primary care physician regularly. Patient is being discharged in stable condition. - Time Spent with Patient Total time spent providing and/or coordinating discharge services: Less than 30 minutes - Constitutional Vitals: Temp Pulse Resp BP Pulse Ox 97.8 F 71 16 112/76 100 06/09/17 07:00 06/09/17 07:00 06/09/17 07:00 06/09/17 07:00 06/09/17 07:00 General appearance: Present: A&O X 3, pleasant, no acute distress, answers questions appropriately - Head Head exam: Present: atraumatic - Eye Eye exam: Present: EOMI - ENT ENT exam: Present: mucous membranes moist - Neck Neck exam general surgery: Present: supple - Respiratory Respiratory exam: Present: CTAB. Absent: rales, rhonchi, stridor, wheezes, tachypnea - Cardiovascular Cardiovascular exam: Present: RRR, +S1, +S2 - GI/Abdominal GI/Abdominal exam: Present: soft. Absent: distended, firm, guarding, rigid, tenderness - Extremities Exam Extremities exam: Present: radial pulses palpable and symetrical. Absent: cyanotic, pedal edema - Neurological Exam Neurological exam: Present: alert, oriented X3, no focal deficits. Absent: facial droop, speech deficit
--- NOTE | 2017-06-11 15:10 | Electrocardiograph Report ---
[address] [address] Test Date: 2017-06-09 Pat Name: Arnulfo Mathew Department: 113 Room: 3B45 Gender: M Client Relation Specialist: : [id number] Requested By: Cuong Troy Order Number: [id number] Reading MD: Grazyna Carmona Measurements Intervals [place] Rate: 64 P: 46 OR: 246 QRS: -38 QRSD: 145 T: 25 QT: 445 QTc: 454 Interpretive Statements SINUS RHYTHM WITH FIRST DEGREE AV BLOCK LEFT AXIS DEVIATION RIGHT BUNDLE BRANCH BLOCK Electronically Signed On 06-10-2017 12:10:51 EDT by Grazyna Carmona
== END 2017-06-09 11:22 | disposition home or self-care (01) | DRG 287 ==
LOC: 3BNU 15:18 → EMEROO 15:18 → 3BNU 17:48
PROVIDERS: ADMIT Registered Nurse; ATTEND Registered Nurse